=== PATIENT | male | born 1990 | race Caucasian/White ===

== ENCOUNTER 2024-05-10 14:43 | Outpatient (CLI) | payer OTHER, SELFPAY ==
[2024-05-10 14:55] LABS: Alanine Aminotransferase 29 U/L (12-78); Albumin Level 4.7 g/dl (3.5-5.0); Albumin/Globulin Ratio 1.9 (1.1-1.8); Alkaline Phosphatase 62 U/L (38-126); Anion Gap 11.9 mEq/L (5-15); Aspartate Amino Transferase 34 U/L (17-59); Bilirubin,Total 0.9 mg/dl (0.2-1.3); Blood Urea Nitrogen 23 mg/dl (9-20); Calcium 9.5 mg/dl (8.4-10.2); Carbon Dioxide 28 mmol/L (22.0-30.0); Chloride 106 mmol/L (98-107); Cholesterol 150 mg/dl (140-200); Estimated Glomerular Filt Rate 97 ml/min (>60); GFR (African American) 117 ML/MIN (>60); Globulin 2.5 g/dL (1.3-3.2); Glucose 87 mg/dl (74-100); HDL Cholesterol 50 mg/dl (40-60); Potassium 4.9 mmoL/L (3.5-5.1); Sodium 141 mmol/L (136-145); Total Protein,Serum 7.2 g/dl (6.3-8.2); Triglycerides 52 mg/dl (30-150); VLDL Cholesterol 10 mg/dL (0-40)
[2024-05-10 15:06] LABS: Direct LDL Cholesterol 75.93 mg/dL (100-129)
== END 2024-05-10 23:59 | disposition home or self-care (01) ==
LOC: LAB.DROPOF 14:43
PROVIDERS: PCP Internal Medicine; Visit Provider Internal Medicine
DX: Z00.00 Encounter for general adult medical examination without abnormal findings (principal); Z13.220 Encounter for screening for lipoid disorders
CPT/HCPCS: 80053; 80061

== ENCOUNTER 2025-04-11 10:23 | Outpatient (CLI) | payer OTHER, SELFPAY ==
[2025-04-11 14:15] LABS: Hematocrit 46.3 % (42.0-52.0); Hemoglobin 15.8 g/dL (14.1-18.0); Immature Granulocytes % 0.5 %; Mean Corpuscular HGB Conc 34.1 g/dL (31.8-35.4); Mean Corpuscular Hemoglobin 30.8 pg (27.0-31.2); Mean Corpuscular Volume 90.3 fl (80-94); Nucleated Red Blood Cells % 0 %; Platelet Count 232 K/mm3 (142-424); Red Blood Count 5.13 M/mm3 (4.60-6.20); Red Cell Distribution Width-SD 38.2 fL; White Blood Count 4.3 K/mm3 (4.8-10.8)
[2025-04-11 14:30] LABS: Chloride 100 mmol/L (98-107)
[2025-04-11 14:31] LABS: Potassium 4.5 mmoL/L (3.5-5.1); Sodium 141 mmol/L (136-145)
[2025-04-11 14:33] LABS: Blood Urea Nitrogen 15 mg/dl (9-20); Creatinine,Serum 1.00 mg/dl (0.66-1.25); Estimated Glomerular Filt Rate 85 ml/min (>60); GFR (African American) 103 ML/MIN (>60)
[2025-04-11 14:34] LABS: Alkaline Phosphatase 74 U/L (38-126); Bilirubin,Total 1.2 mg/dl (0.2-1.3)
[2025-04-11 14:39] LABS: Albumin Level 5.0 g/dl (3.5-5.0)
[2025-04-11 14:42] LABS: Alanine Aminotransferase 34 U/L (12-78); Albumin/Globulin Ratio 2.0 (1.1-1.8); Anion Gap 16.5 mEq/L (5-15); Aspartate Amino Transferase 35 U/L (17-59); Calcium 9.8 mg/dl (8.4-10.2); Carbon Dioxide 29 mmol/L (22.0-30.0); Globulin 2.5 g/dL (1.3-3.2); Glucose 94 mg/dl (74-100); Total Protein,Serum 7.5 g/dl (6.3-8.2)
--- OUTSIDE RECORDS SUMMARY | 2025-04-12 10:16 | XMS_ITS | Referral Summary ---
Author Organization [facility] ([place], [place], [place], [place]) Address [address] [place] [address] Care Team Providers Care Activity Coordinator Name Role Phone Unavailable Primary Care Provider Unavailabl e Social History Tobacco Use Types Packs/Day Years Used Date Smoking Tobacco: Never Assessed Sex and Gender Information Value Date Recorded Sex Assigned at Not on file Legal Sex Male 6:11 PM CDT Gender Identity Not on file Sexual Orientation Not on file Plan of Treatment Not on file
--- OUTSIDE RECORDS SUMMARY | 2025-04-12 10:16 | XMS_ITS | Clinical Summary ---
Author Organization Healthcare Address [address] [place] [address] Care Team Providers Care Shearer [employer] Name Role Phone Unavailable Primary Care Provider Unavailabl e Encounters Date Type Department Care Team Description 03/15/2025 Telephone [facility] [address] [place] [address] An Fernandez 02/02/2025 Telephone [facility] [address] [place] [address] An Fernandez from Last 3 Months Immunizations Immunization Administration Dates Next Due Tdap 10/26/2011 Social History Tobacco Use Types Packs/Day Years Used Date Smoking Tobacco: Never Assessed Sex and Gender Information Value Date Recorded Sex Assigned at Not on file Legal Sex Male 7:45 PM EDT Gender Identity Not on file Sexual Orientation Not on file Last Filed Vital Signs Vital Sign Reading Time Taken Comments Blood Pressure - - Pulse - - Temperature - - Respiratory Rate - - Oxygen Saturation - - Inhaled Oxygen Concentration - - Weight 82 kg (180 lb 12.8 oz) 11/05/2011 10:41 A M EDT Height 167.6 cm (5' 6 ) 11/05/2011 10:41 AM EDT Body Mass Index 29.18 11/05/2011 10:41 AM EDT Plan of Treatment Health Maintenance Due Date Last Done Comments [facility]-Depression Screening 1989 [facility]-Infant/Child/Adol SDOH Screenings 1989 [facility]-Varicella Vaccines (1 of 2 - 13+ 2-dose series) 2002 [facility]- SDOH Screenings 2007 [facility]-Adult SDOH Screenings 2007 [facility]-Hepatitis B Vaccines (1 of 3 - 19+ 3-dose series) 2008 HPV Vaccines (1 - 3-dose SCD M series) 2016 [facility]-DTaP,Tdap,and Td Vaccine s (2 - Td or Tdap) 10/25/2021 10/26/2011 [id number] Vaccine (1 - 20 24-25 season) 2025 [facility]-Influenza Vaccine (#1) 2025 [facility]-Zoster Vaccines (1 of 2) 2039 [facility]-HIB Vaccines Aged Out No longer e ligible based on patient's age to complete this topic [facility]-Hepatitis A Vaccines Aged Out No longer eligible based on patient's age to complete this topic [facility]-IPV Vaccines Aged Out No longer e ligible based on patient's age to complete this topic [facility]-Pneumococcal Vaccine: Pediatrics (0 to 5 Years) and At-Risk Patients (6 to 49 Years) Aged Out No long er eligible based on patient's age to complete this topic [facility]-Rotavirus Vaccines Aged Out No lo nger eligible based on patient's age to complete this topic
--- OUTSIDE RECORDS SUMMARY | 2025-04-12 10:16 | XMS_ITS | Encounter Summary ---
Author Organization Healthcare Address [address] [id number] Care Team Providers Care Recreation Supervisor Name Role Phone Unavailable Primary Care Provider Unavailabl e Reason for Referral * Consultation (Routine) - Closed Specialty Diagnoses / Procedures Referred By Contac t Referred To Contact Dentist / Pain Medicine Diagnoses Obstructive sleep apnea (adult) (pediatric) Radha Mccann MD [address] [place] [email or web address] [place] [address] Phone: tel: fax: Sanjana Sofia, DDS [address] [facility] [address] [place] [address] Phone: tel: fax: Referral ID Status Reason Start Date Expiration Date Visits Re quested Visits Authorized [id number] Closed 11/03/2024 05/05/2026 1 1 Encounter Details Date Type Department Care Team (Late st Contact Info) Description 11/03/2024 [facility] [address] [place] [address] Radha Mccann MD [address] [place] [address] Obstructive sleep apnea (adult) (pediatric) (Primary Dx) Social History Tobacco Use Types Packs/Day Years Used Date Smoking Tobacco: Never Assessed Sex and Gender Information Value Date Recorded Sex Assigned at Not on file Legal Sex Male 7:45 PM EDT Gender Identity Not on file Sexual Orientation Not on file documented as of this encounter Plan of Treatment Scheduled Referrals Name Type Priority Associated Diagnoses Order Schedule Ambulatory Referral to Orofacial Pain Outpatient Referral Routine Obstructive sleep apnea (adult) (pediatric) Expected: 11/03/2024 (Approximate), Expires: 05/05/2026 documented as of this encounter Visit Diagnoses Diagnosis Obstructive sleep apnea (adult) (pediatric)- Primary documented in this encounter
--- OUTSIDE RECORDS SUMMARY | 2025-04-12 10:16 | XMS_ITS | Encounter Summary ---
Author Organization Healthcare Address [address] [place] [address] Care Team Providers Care Felled Seam Operator [employer] Name Role Phone Unavailable Primary Care Provider Unavailabl e Encounter Details Date Type Department Care Team (Late st Contact Info) Description 03/15/2025 Telephone [facility] [address] [place] [address] An Fernandez [facility] [place] [address] Social History Tobacco Use Types Packs/Day Years Used Date Smoking Tobacco: Never Assessed Sex and Gender Information Value Date Recorded Sex Assigned at Not on file Legal Sex Male 7:45 PM EDT Gender Identity Not on file Sexual Orientation Not on file documented as of this encounter Miscellaneous Notes * Telephone Encounter - An Fernandez - 03/15/2025 4:13 PM EDT Phone call complete documented in this encounter Plan of Treatment Not on file documented as of this encounter Visit Diagnoses Not on filedocumented in this encounter
--- OUTSIDE RECORDS SUMMARY | 2025-04-12 10:16 | XMS_ITS | Clinical Summary ---
Author Organization [facility] ([place], [place], [place], [place]) Address [address] [place] [address] Care Team Providers Care Rocket Scientist Name Role Phone Unavailable Primary Care Provider [...]
--- OUTSIDE RECORDS SUMMARY | 2025-04-12 10:16 | XMS_ITS | Clinical Summary ---
Author Organization [facility] Address [address] [place] [address] Care Team Providers Care Agronomy Advisor Name Role Phone Provider, No Known Primary Care Provider Unavail able Allergies No known active allergies Medications No known medications Social History Tobacco Use Types Packs/Day Years Used Date Smoking Tobacco: Never Smokeless Tobacco: Never Tobacco Cessation:Counseling Given: No Alcohol Use Standard Drinks/Week Comments Yes 0 (1 standard drink = 0.6 oz pur e alcohol) 5-10 weekly Abuse Screen Answer Date Recorded Unsafe at Home or Work/School Not on file Feels Threatened by Someone? Not on file 06/2023 Does Anyone Keep You from Co ntacting Others or Doint Things Outside the Home? Not on file 04/30/2023 Physical Sign of Abuse Present Not on file 1 Housing Stability Answer Date Recorded Current Living Arrangements Not on file 04/19 Potentially Unsafe Housing Conditions Not on keya e 04/30/2023 Family and Community Support Answer Steve e Recorded Help with Day-to-Day Activities Not on file 04/30/2023 Lonely or Isolated Not on file 04/30/2023 Employment Answer Date Recorded Do you want help finding or keeping work or a silas b? Not on file 04/30/2023 Disabilities Answer Date Recorded Concentrating, Remembering, or Making Decisions Difficulty Not on file 04/30/2023 Doing Errands Independently Difficulty Not on fi le 04/30/2023 Education Answer Date Recorded Help with school or training? Not on file Preferred Language Not on file 04/30/2023 Sex and Gender Information Value Date Recorded Sex Assigned at Not on file Legal Sex Male 4:17 PM EST Gender Identity Not on file Sexual Orientation Not on file Last Filed Vital Signs Vital Sign Reading Time Taken Comments Blood Pressure 128/78 08/11/2019 5:02 PM EST Pulse 82 08/11/2019 5:02 PM EST Temperature 37.8 C (100.1 F) 08/11/2019 5:02 PM EST Respiratory Rate 20 08/11/2019 5:02 PM EST Oxygen Saturation 97% 08/11/2019 5:02 PM EST Inhaled Oxygen Concentration - - Weight 80.1 kg (176 lb 9.6 oz) 08/11/2019 5:02 P M EST Height - - Body Mass Index - - Plan of Treatment Health Maintenance Due Date Last Done Comments ANNUAL PHYSICAL 08/11/2019 HEPATITIS C SCREENING 08/11/2019 TDAP/TD VACCINES (2 - Td or Tdap) 10/25/2021 012 INFLUENZA VACCINE 02/17/2025 Pneumococcal Vaccine 0-49 Aged Out No longer eligible based on patient's age to complete this topic Insurance [facility] PPO Care Teams Agronomy Advisor Relationship Specialty Start Date End Date Provider, No Known [facility] [place] [address] PCP - General 08/11/19
== END 2025-04-11 23:59 | disposition home or self-care (01) ==
LOC: LAB.DROPOF 04-12 10:09
PROVIDERS: PCP Internal Medicine; Visit Provider Internal Medicine
DX: Z13.89 Encounter for screening for other disorder (principal); R53.83 Other fatigue
CPT/HCPCS: 80053; 84403; 85025